=== PATIENT | female | born 1990 | race Caucasian/White ===

== ENCOUNTER 2020-12-23 06:12 | Inpatient (IN) ==
[2020-12-23] MEDS ORDERED: PEPCID 20 MG IV PREMIX* 20 MG/50 ML BAG IV ONE (06:29)
[2020-12-23] MEDS ORDERED: DECADRON INJ ONE (06:29)
[2020-12-23] MEDS ORDERED: DILAUDID INJ ONE (06:29)
[2020-12-23] MEDS ORDERED: LR 1000 ML IV 1,000 ML IV ONE ×2 (06:39→07:01)
[2020-12-23] MEDS ORDERED: ANCEF 1 GRAM IV PREMIX* 2 G/100 ML BAG IV ONE (06:40)
[2020-12-23] MEDS ORDERED: D5 1/2 NS 1L W PITOCIN 20 UNITS/L 20 UNITS/1,000 ML BAG IV ONE (06:41)
[2020-12-23] MEDS ORDERED: D5 1/2 NS 1000 ML 1,000 ML IV SCH (06:48)
[2020-12-23] MEDS ORDERED: ANCEF VIAL 1 GRAM IVP ONE (06:48)
[2020-12-23] MEDS ORDERED: LACRI-LUBE S.O.P. ONE (07:15)
[2020-12-23] MEDS ORDERED: ZOFRAN INJ 4 MG VIAL ONE (07:15)
[2020-12-23] MEDS ORDERED: VERSED ONE (07:15)
[2020-12-23] MEDS ORDERED: EPHEDRINE SULFATE INJ ONE (07:15)
[2020-12-23] MEDS ORDERED: PITOCIN ONE (07:15)
[2020-12-23] MEDS ORDERED: XYLOCAINE 1 % (PLAIN) ONE (07:15)
[2020-12-23] MEDS ORDERED: MARCAINE SPINAL ONE (07:15)
[2020-12-23] MEDS ORDERED: BENADRYL INJ 50 MG VIAL IVP PRN ×2 (09:03→09:44)
[2020-12-23] MEDS ORDERED: REGLAN INJ 10 MG VIAL IVP PRN ×2 (09:03→09:44)
[2020-12-23] MEDS ORDERED: PHENERGAN INJ 25 MG IM PRN (09:03)
[2020-12-23] MEDS ORDERED: ZOFRAN INJ 4 MG VIAL IVP PRN ×2 (09:03→09:44)
[2020-12-23] MEDS ORDERED: DILAUDID INJ IVP PRN (09:03)
[2020-12-23] MEDS ORDERED: TORADOL 30 MG VIAL IVP PRN (09:44)
[2020-12-23] MEDS ORDERED: PERCOCET TAB 5/325 MG PO PRN (09:44)
[2020-12-23] MEDS ORDERED: VENTOLIN or PROAIR HFA IN PRN (09:44)
[2020-12-23] MEDS ORDERED: ADACEL or BOOSTRIX TDaP VACCINE IM ONE (09:44)
[2020-12-23] MEDS ORDERED: MYLICON TAB 80 MG CHEW PO PRN (09:44)
[2020-12-23] MEDS ORDERED: NARCAN INJ IVP PRN (09:44)
[2020-12-23] MEDS ORDERED: D5 1/2 NS 1000 ML 1,000 ML with PITOCIN 20 UNITS IV SCH ×2 (10:00)
[2020-12-24 04:48] LABS: HEMOGLOBIN 10.4 g/dL (12.0-16.0)
[2020-12-24] MEDS ORDERED: MOTRIN TAB 800 MG PO PRN (07:28)
[2020-12-24] MEDS ORDERED: PERCOCET TAB 5/325 MG PO PRN (07:28)
[2020-12-24] MEDS: PROTONIX TAB 40 MG PO SCH (09:38)
[2020-12-24] MEDS: COLACE CAP 100 MG PO SCH ×2 (09:38→20:42)
[2020-12-24] MEDS: VALTREX PO SCH (09:38)
[2020-12-24] MEDS: PRENATAL PLUS PO SCH (09:38)
[2020-12-24] MEDS ORDERED: ADACEL or BOOSTRIX TDaP VACCINE IM ONE (10:00)
[2020-12-24] MEDS: BACTROBAN TOPICAL OINT TOP SCH ×2 (14:30→21:37)
[2020-12-25] MEDS: BACTROBAN TOPICAL OINT TOP SCH (05:58)
[2020-12-25 07:52] VITALS: BP 125/72
[2020-12-25] MEDS: COLACE CAP 100 MG PO SCH (08:47)
[2020-12-25] MEDS: PROTONIX TAB 40 MG PO SCH (08:47)
[2020-12-25] MEDS: PRENATAL PLUS PO SCH (08:47)
[2020-12-25] MEDS: VALTREX PO SCH (08:48)
== END 2020-12-25 10:33 | disposition home or self-care (01) | DRG 784 ==
LOC: LD 06:12 → MED/SURG 10:05
PROVIDERS: ADMIT Specialist; ATTEND Specialist
DX: O34.211 Maternal care for low transverse scar from previous cesarean delivery; O98.513 Other viral diseases complicating pregnancy, third trimester; Z23 Encounter for immunization; Z01.812 Encounter for preprocedural laboratory examination; O99.613 Diseases of the digestive system complicating pregnancy, third trimester; Z30.2 Encounter for sterilization; Z20.822 Contact with and (suspected) exposure to COVID-19; B95.1 Streptococcus, group B, as the cause of diseases classified elsewhere; Z3A.39 39 weeks gestation of pregnancy; J45.998 Other asthma; O99.824 Streptococcus B carrier state complicating childbirth; Z37.0 Single live birth; O99.891 Other specified diseases and conditions complicating pregnancy; O26.43 Herpes gestationis, third trimester; N85.8 Other specified noninflammatory disorders of uterus; O26.893 Other specified pregnancy related conditions, third trimester